=== PATIENT | male | born 1990 | race Two or more races ===

== ENCOUNTER 2017-11-22 11:51 | Emergency (ER) | payer MEDICAID ==
--- NOTE | 2017-11-22 12:21 | EDPHY ---
H & P Stated Complaint: abd pain Time Seen by Provider: 11/22/17 12:20 HPI/ROS: HPI: This is a 27-year-old male who presents with Chief Complaint: Abdominal pain Location: General abdomen Quality: Pain Duration: 1 month Signs and Symptoms: no fever, no nausea, no vomiting, no hematemesis, no blood in stool, + abdominal bloating, + diarrhea, no back pain, no urinary symptoms, no testicular/groin pain, no indigestion, no chest pain, no shortness of breath Timing: Daily Severity: Moderate Context: Patient reports that he has been having generalized abdominal pain that is nonradiating in nature and is described as constant, moderate in severity x1 month. He reports that he has been seen at [facility] emergency room for the same with negative lab work and CT scan. He had a EGD 2-3 years ago that showed gastritis. He has been supposed to be taking Prilosec but stopped as he started to feel better. He reports that he has some loose stools over the past month. Noted some blood in his stool but mostly complains of perirectal irritation and soreness. 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 He reports to me that he has been sober for 2 years. Denies any NSAID use/regular alcohol use/recent antibiotic use. Modifying Factors: None Comment: ROS: see HPI Constitutional: No fever, no chills, no weight loss Eyes: No blurred vision Respiratory: No shortness of breath, no cough Cardiovascular: No chest pain, no palpitations Gastrointestinal: No nausea, no vomiting, no diarrhea, no hematemesis, no blood in stool Genitourinary: No dysuria, no blood in urine Extremities: No myalgias, no edema Neurologic: No weakness, no numbness Skin: No rashes, no petechiae Hematologic: No bruising, no bleeding MEDICAL/SURGICAL/SOCIAL HISTORY: Medical history: Colitis, gastric ulcer, asthma Surgical history: Denies Social history: Family history noncontributory. CONSTITUTIONAL: Extremely well-appearing male, awake and alert, no obvious distress HEENT: Atraumatic and normocephalic, PERRL, EOMI. Nares patent; no rhinorrhea; no nasal mucosal edema. Tympanic membranes clear. Oropharynx clear, no exudate and moist pink mucosa. Airway patent. No lymphadenopathy. No meningismus. Cardiovascular: Normal S1/S2, regular rate, regular rhythm, without murmur rub or gallop. PULMONARY/CHEST: Symmetrical and nontender. Clear to auscultation bilaterally. Good air movement. No accessory muscle usage. ABDOMEN: Soft, nondistended, nontender, no rebound, no guarding, no peritoneal signs, no masses or organomegaly. No CVAT. RECTAL: Good sphincter tone, light brown stool in vault, no external hemorrhoids , no fissures, no palpable masses, guaiac negative; perirectal irritation with light pink bleeding noted EXTREMITIES: 2/2 pulses, strength 5/5, no deformities, no clubbing, no cyanosis or edema. NEUROLOGICAL: no focal neuro deficits. GCS 15. SKIN: Warm and dry, tattoos covering body, no erythema. no rash. Good capillary refill. Source: Patient Exam Limitations: No limitations - Personal History Current Tetanus/Diphtheria Vaccine: Unsure Current Tetanus Diphtheria and Acellular Pertussis (TDAP): Unsure - Medical/Surgical History Hx Asthma: Yes Hx Chronic Respiratory Disease: No Hx Diabetes: No Hx Cardiac Disease: No Hx Renal Disease: No Hx Cirrhosis: No Hx Alcoholism: No Hx HIV/AIDS: No Hx Splenectomy or Spleen Trauma: No Other PMH: colitis, gastric ulcer, asthma, - Social History Smoking Status: Never smoked Constitutional: Initial Vital Signs Temperature (C) 36.5 C 11/22/17 12:03 Heart Rate 95 11/22/17 12:03 Respiratory Rate 20 11/22/17 12:03 Blood Pressure 116/89 H 11/22/17 12:03 O2 Sat (%) 100 11/22/17 12:03 O2 Delivery Mode Room Air Allergies/Adverse Reactions: amoxicillin Allergy (Verified 11/22/17 12:03) Home Medications: Medication Instructions Recorded Benadryl 11/22/17 Dicyclomine [Bentyl 20 MG (*)] 20 mg PO TID PRN #15 tab 11/22/17 Hydrocortisone Acetate 25 mg NV Q6 #7 supp 11/22/17 [Hemorrhoidal Hc 25 mg supp (*)] Mylanta 11/22/17 Ondansetron Odt [Zofran Odt 4 mg 4 mg PO Q4 PRN #12 tab 11/22/17 (*)] oxyCODONE/APAP 325 [Percocet 1 - 2 tab PO Q4H PRN #10 tab 11/22/17 (*)] predniSONE 50 mg PO DAILY 7 Days tablet 11/22/17 Medical Decision Making - Diagnostics Imaging Results: Imaging Impressions Abdomen CT 11/22/17 12:32 Impression: 1. Moderate thickening of the ascending colon with surrounding inflammation with mild thickening of the remaining colon as well as mild to moderate thickening of the mid to distal ileum. Consider colitis and enteritis. Rule out Crohn's disease. 2. Thickening is also suspected of the distal esophagus and gastric wall. Consider peptic ulcer disease and esophagitis. Consider Crohn's disease as well. Findings discussed with Maggy Crook PAC at 14:05 hour, 11/22/2017. ED Course/Re-evaluation: Vital signs stable upon arrival. Given 1 L normal saline, IV Dilaudid 0.5 mg, IV promethazine 12.5 mg, IV Protonix 40 mg Rectal irritation noted with bright red blood; viscous lidocaine applied 1330: Labs reviewed, WBC 12 K. No signs of anemia/STEVEN/elevated LFTs/ electrolyte imbalance/pancreatitis. 1410: Called by radiologist Dr. Morris, who reports inflammation in the ascending colon as well as in remaining colon, thickening in the mid to distal ileum as well as in the stomach. These signs are concerning for Crohn's disease. Given 125 mg of Solu-Medrol. 1420: Reassessed patient. Sleeping soundly. Discussed CT results and plan of care. Patient asking for"pain medications" prior to leaving and advised that he will be given prescriptions. Patient is appropriate to treat outpatient. Advised GI follow-up, prednisone burst, Anusol HC suppository, Bentyl as needed , Zofran p.r.n. This patient was seen under the supervision of my secondary supervising physician. I evaluated care for this patient independently. Discussed this patient with Dr. Oswald who did not see the patient. Differential Diagnosis: Abdominal pain including but not limited to appendicitis, cholecystitis, gastritis and urinary tract infection. - Data Points Laboratory Results: Laboratory Results 11/22/17 12:35 11/22/17 12:35 11/22/17 11/22/17 12:35 12:35 WBC 12.27 10^3/uL H 10^3/uL (3.80-9.50) RBC 5.98 10^6/uL 10^6/uL (4.40-6.38) Hgb 18.8 g/dL H g/dL (13.7-17.5) Hct 53.2 % H % (40.0-51.0) MCV 89.0 fL fL (81.5-99.8) MCH 31.4 pg pg (27.9-34.1) MCHC 35.3 g/dL g/dL (32.4-36.7) RDW 13.4 % % (11.5-15.2) Plt Count 355 10^3/uL 10^3/uL (150-400) MPV 9.5 fL fL (8.7-11.7) Neut % (Auto) 67.6 % % (39.3-74.2) Lymph % (Auto) 17.4 % % (15.0-45.0) Keith % (Auto) 5.0 % % (4.5-13.0) Eos % (Auto) 9.0 % H % (0.6-7.6) Baso % (Auto) 0.5 % % (0.3-1.7) Nucleat RBC Rel Count 0.0 % % (0.0-0.2) Absolute Neuts (auto) 8.31 10^3/uL H 10^3/uL (1.70-6.50) Absolute Lymphs (auto) 2.13 10^3/uL 10^3/uL (1.00-3.00) Absolute Monos (auto) 0.61 10^3/uL 10^3/uL (0.30-0.80) Absolute Eos (auto) 1.10 10^3/uL H 10^3/uL (0.03-0.40) Absolute Basos (auto) 0.06 10^3/uL 10^3/uL (0.02-0.10) Absolute Nucleated RBC 0.00 10^3/uL 10^3/uL (0-0.01) Immature Gran % 0.5 % % (0.0-1.1) Immature Gran # 0.06 10^3/uL 10^3/uL (0.00-0.10) Sodium 144 mEq/L mEq/L (135-145) Potassium 4.1 mEq/L mEq/L (3.3-5.0) Chloride 107 mEq/L mEq/L (97-110) Carbon Dioxide 18 mEq/l L mEq/l (22-31) Anion Gap 19 mEq/L H mEq/L (8-16) BUN 7 mg/dL mg/dL (7-23) Creatinine 0.9 mg/dL mg/dL (0.7-1.3) Estimated GFR > 60 Glucose 113 mg/dL H mg/dL (70-100) Calcium 9.8 mg/dL mg/dL (8.5-10.4) Total Bilirubin 1.3 mg/dL mg/dL (0.1-1.4) Conjugated Bilirubin 0.5 mg/dL mg/dL (0.0-0.5) Unconjugated Bilirubin 0.8 mg/dL mg/dL (0.0-1.1) AST 37 IU/L IU/L (17-59) ALT 90 IU/L H IU/L (21-72) Alkaline Phosphatase 105 IU/L IU/L (38-126) Total Protein 7.8 g/dL g/dL (6.3-8.2) Albumin 4.7 g/dL g/dL (3.5-5.0) Lipase 58 IU/L IU/L (23-300) Medications Given: Discontinued Medications Hydromorphone HCl (Dilaudid) 0.5 mg IVP EDNOW ONE Stop: 11/22/17 12:33 Last Admin: 11/22/17 12:49 Dose: 0.5 mg Sodium Chloride (Ns) 1,000 mls @ 0 mls/hr IV EDNOW ONE; Wide Open PRN Reason: Protocol Stop: 11/22/17 12:33 Last Admin: 11/22/17 12:44 Dose: 1,000 mls Lidocaine (Uroject Lidocaine 2% Jelly) 20 ml UR EDNOW ONE Stop: 11/22/17 12:33 Last Admin: 11/22/17 12:49 Dose: 20 ml Pantoprazole Sodium (Protonix) 40 mg IVP ONCE ONE Stop: 11/22/17 12:33 Last Admin: 11/22/17 12:49 Dose: 40 mg Promethazine HCl (Phenergan) 12.5 mg IVP EDNOW ONE Stop: 11/22/17 12:33 Last Admin: 11/22/17 12:44 Dose: 12.5 mg Departure - Departure Disposition: Home, Routine, Self-Care Clinical Impression: Perirectal skin irritation, Inflammatory bowel disease Gastritis Qualifiers: Gastritis type: unspecified gastritis Chronicity: chronic Gastritis bleeding: without bleeding Qualified Code(s): K29.50 - Unspecified chronic gastritis without bleeding Condition: Good Instructions: Irritable Bowel Syndrome (ED), Gastritis (ED), Diet for Stomach Ulcers and Gastritis (ED) Additional Instructions: Consume a minimum of 8-10 glasses of water or electrolyte fluid replacement drinks that include Gatorade, Powerade, Pedialyte. Eat a bland diet for the next 48 hours and then slowly advance as tolerated. Take Zofran 1 tab every 4 hours as needed for nausea, vomiting. Take Prednisone 50 mg daily times x 7 days. Start taking [id number] Prilosec daily at night. Follow-up with Gastroenterology, Dr. St in next 7-10 days. Follow-Up: Please follow-up as noted above. Follow up sooner if your condition worsens or if you develop any new problems Call as soon as possible for an appointment. Be clear when you call for an appointment that this is an Emergency Department follow-up. Contact the Emergency Department if you are having trouble arranging follow up care. Our referrals are not based on your insurance network. When time allows, contact your insurance carrier to verify the referral physician is in your plan. If not, get a referral for an in-network manager. Please ask us if you have any questions. Referrals: Bob St MD [Medical Doctor] - As per Instructions Prescriptions: Dicyclomine [Bentyl 20 MG (*)] 20 mg PO TID PRN #15 tab PRN Reason: Gi Distress Hydrocortisone Acetate [Hemorrhoidal Hc 25 mg supp (*)] 25 mg NV Q6 #7 supp Ondansetron Odt [Zofran Odt 4 mg (*)] 4 mg PO Q4 PRN #12 tab PRN Reason: Nausea/Vomiting, Use 1st oxyCODONE/APAP 5/325 [Percocet 5/325 (*)] 1 - 2 tab PO Q4H PRN #10 tab PRN Reason: Pain, Severe predniSONE 50 mg PO DAILY 7 Days tablet
[2017-11-22] MEDS ORDERED: LIDOCAINE 2% JELLY 20 ML (UROJECT) UR ONE (12:32)
[2017-11-22] MEDS ORDERED: PANTOPRAZOLE SODIUM 40 MG VIAL IVP ONE (12:32)
[2017-11-22] MEDS ORDERED: HYDROmorphONE/DILAUDID 2 MG/ML INJ IVP ONE (12:32)
[2017-11-22] MEDS ORDERED: PROMETHAZINE HCL 25 MG/ML INJ IVP ONE (12:32)
[2017-11-22] MEDS ORDERED: NS 1,000 ML IV ONE (12:32)
[2017-11-22] MEDS ORDERED: HYDROmorphONE/DILAUDID 1 MG/ML INJ ONE (12:41)
[2017-11-22 12:47] LABS: PLATELET COUNT 355 10^3/uL (150-400)
[2017-11-22] MEDS ORDERED: IOPAMIDOL (ISOVUE-300) 100 ML BTL ONE (13:25)
[2017-11-22] MEDS ORDERED: methylPREDNISolone SOD SUCC 125 MG/2 ML VIAL IVP ONE (14:08)
[2017-11-22 14:42] VITALS: BP 115/76
== END 2017-11-22 14:44 | disposition home or self-care (01) ==
DX: K29.50 Unspecified chronic gastritis without bleeding (principal); K63.9 Disease of intestine, unspecified; K62.89 Other specified diseases of anus and rectum; J45.909 Unspecified asthma, uncomplicated; E86.9 Volume depletion, unspecified
CPT/HCPCS: 96374; J1170; J2550; J2930; Q9967

== ENCOUNTER 2017-12-14 16:02 | Emergency (ER) | payer MEDICAID ==
[2017-12-14] MEDS ORDERED: LIDOCAINE 4%/MENTHOL 1% PATCH TD ONE (16:43)
[2017-12-14] MEDS ORDERED: IBUPROFEN 600 MG TAB PO ONE (16:43)
[2017-12-14] MEDS ORDERED: DIAZEPAM 5 MG TAB ONE (16:43)
[2017-12-14] MEDS ORDERED: traMADol 50 MG TAB ONE (16:43)
[2017-12-14] MEDS ORDERED: ACETAMINOPHEN 500 MG TAB ONE (16:43)
--- NOTE | 2017-12-14 22:22 | EDPHY ---
H & P Time Seen by Provider: 12/14/17 16:12 HPI/ROS: Nedra Gramajo : 88 12/14/17 Chief complaint: This patient complains of back pain in the midback. HPI: This patient was driven in by his girlfriend with history of onset left back pain yesterday when he bent over to tie his shoe. He reports that it was gripping severe and dropped into his knees. He has had back spasms since that time with pain that worsens with movement. He currently reports that 01/11 and reports associated muscle spasms. He has not taken any medications prior to arrival. ROS: Constitutional: No fevers or other complaints. Pulmonary: No dyspnea. No coughing Cardiovascular: No lightheadedness. No chest pain. GI: No nausea vomiting. No abdominal pain. Neuro: No focal numbness tingling weakness. No bowel or bladder incontinence. Musculoskeletal: No recent trauma. Past medical history: Otherwise healthy. Social history: Patient uses edible marijuana. He denies any smoking rare drinking. No other drug use. Specifically, no IV drug use Physical exam: Physical Exam Vital signs are normal. General: No acute distress HEENT: Atraumatic. Eyes: Pupils equal and react to light. Extraocular motions are intact. Lungs: No respiratory distress. Lungs are clear to auscultation bilaterally. Cardiac: Brisk capillary refill is intact throughout. Pulses are 2+ and symmetric in the affected extremity. Back: Patient has left thoracic paraspinous muscular tenderness and spasm around the region of T8-T10. Skin: No rash or pallor. Neuro: Alert and oriented x3 with no sensorimotor deficits. He maintains normal light touch sensory exam bilaterally and 2+ symmetric patellar DTRs bilaterally, 5/5 strength in great toe dorsiflexion, plantar flexion of bilateral upper extremities. Initial diagnosis: Thoracic back strain, doubt discogenic disease, doubt bony abnormality, doubt epidural abscess or other ED course: Ibuprofen, Tylenol p. O., tramadol p. O., Valium p.o., lidocaine patch With partial relief Discussion: Patient with findings of thoracic back strain and spasm without red flag findings that would indicate radiculopathy, concerns for epidural abscess or other complicating factors. Plan: Discharge home on ibuprofen, Tylenol, lidocaine patches, methocarbamol and tramadol if needed with follow up with primary care physician. Smoking Status: Never smoked Allergies/Adverse Reactions: amoxicillin Allergy (Verified 11/22/17 12:03) Home Medications: Medication Instructions Recorded Benadryl 11/22/17 Dicyclomine [Bentyl 20 MG (*)] 20 mg PO TID PRN #15 tab 11/22/17 Hydrocortisone Acetate 25 mg NE Q6 #7 supp 11/22/17 [Hemorrhoidal Hc 25 mg supp (*)] Mylanta 11/22/17 Ondansetron Odt [Zofran Odt 4 mg 4 mg PO Q4 PRN #12 tab 11/22/17 (*)] oxyCODONE/APAP 5/325 [Percocet 1 - 2 tab PO Q4H PRN #10 tab 11/22/17 5/325 (*)] predniSONE 50 mg PO DAILY 7 Days tablet 11/22/17 MDM/Departure - Depart Disposition: Home, Routine, Self-Care Clinical Impression: Acute thoracic back pain Qualifiers: Back pain laterality: left Qualified Code(s): M54.6 - Pain in thoracic spine Condition: Good Instructions: Acute Low Back Pain (ED) Additional Instructions: Diagnosis: Thoracic back strain Plan: Ibuprofen, Tylenol, Robaxin, lidocaine patches and tramadol as needed for pain control. No driving, alcohol work on tramadol Follow up primary care physician Limit activity until symptoms improve. Return for any significant worsening despite treatment plan. Referrals: NONE *PRIMARY CARE P,. [Primary Care Provider] - As per Instructions
== END 2017-12-14 17:10 | disposition home or self-care (01) ==
LOC: CED 16:06
DX: M54.6 Pain in thoracic spine (principal)

== ENCOUNTER 2018-01-29 17:15 | Emergency (ER) | payer MEDICAID ==
[2018-01-29 17:24] VITALS: BP 133/85
[2018-01-29] MEDS ORDERED: IBUPROFEN 600 MG TAB PO ONE (17:37)
--- NOTE | 2018-01-29 17:53 | EDPHY ---
H & P Time Seen by Provider: 01/29/18 17:19 HPI/ROS: CHIEF COMPLAINT: Right foot pain HISTORY OF PRESENT ILLNESS: Patient states he was home around 11 o'clock this morning and was working on a vacuum book cleaner when the motor head start coordinator fell off and landed on his right foot. It injured his 1st 2nd and 3rd toes. He put ice on it. He has been icing and elevating it throughout the day. He comes in for evaluation. Patient denies numbness, tingling, other injury. No discoloration noted. REVIEW OF SYSTEMS: Negative except per HPI. General Appearance: Alert, no distress. Eyes: Pupils equal and round no icterus Respiratory: No respiratory distress Neurological: Awake, alert, no focal deficits. Skin: Warm and dry, no rashes. Musculoskeletal: Neck is supple nontender. Extremities are symmetrical, full range of motion, tenderness to palpation to the forefoot on the right-hand side around toes 1 and 2 and 3. Some swelling. Distal sensation circulation and movement intact. Psychiatric: Patient is oriented X 3, there is no agitation. Medical/surgical history: Noncontributory Smoking Status: Never smoked Constitutional: Initial Vital Signs Temperature (C) 36.9 C 01/29/18 17:19 Heart Rate 83 01/29/18 17:19 Respiratory Rate 16 01/29/18 17:19 Blood Pressure 133/85 H 01/29/18 17:19 O2 Sat (%) 95 01/29/18 17:19 O2 Delivery Mode Room Air Allergies/Adverse Reactions: amoxicillin Allergy (Verified 01/29/18 17:23) Medical Decision Making - Diagnostics Imaging Results: Imaging Impressions Foot X-Ray 01/29/18 17:28 Impression: Negative. No acute fracture. Imaging: I viewed and interpreted images myself Differential Diagnosis: Patient presents after minor trauma to right foot, dropped a vacuum book cleaner motor on his foot at home. No evidence of fracture, dislocation, open wound or compartment syndrome. Discussed RICE care and given Matthew wrap and postop shoe. Signs and symptoms of compartment syndrome and other complications discussed. Stable for discharge. - Data Points Medications Given: Discontinued Medications Ibuprofen (Motrin) 600 mg PO EDNOW ONE Stop: 01/29/18 17:38 Last Admin: 01/29/18 17:41 Dose: 600 mg Departure - Departure Disposition: Home, Routine, Self-Care Clinical Impression: Foot contusion Qualifiers: Encounter type: initial encounter Laterality: right Qualified Code(s): S90.31XA - Contusion of right foot, initial encounter Condition: Good Instructions: Foot Contusion (ED) Additional Instructions: Rest, ice, compression and elevation for your injury. Use the Matthew wrap and postop shoe when up and ambulating. Ibuprofen and/or Tylenol for pain as needed. Return for any concerns of numbness, discoloration or other issues. Referrals: NONE *PRIMARY CARE P,. [Primary Care Provider] - As per Instructions
== END 2018-01-29 18:01 | disposition home or self-care (01) ==
LOC: CED 17:15
DX: S90.31XA Contusion of right foot, initial encounter (principal); W20.8XXA Other cause of strike by thrown, projected or falling object, initial encounter; Y92.009 Unspecified place in unspecified non-institutional (private) residence as the place of occurrence of the external cause
CPT/HCPCS: 73630-PO; L4386

== ENCOUNTER 2018-02-20 | Emergency (ER) | payer MEDICAID | END 2018-02-20 11:31 | disposition home or self-care (01) ==

== ENCOUNTER 2018-08-31 18:00 | Emergency (ER) | payer MEDICAID ==
--- NOTE | 2018-08-31 18:41 | EDPHY ---
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 Worse with taking a deep breath. He became slightly anxious secondary to that and felt like his heart might be irregular. No nausea or vomiting. No diaphoresis. No lightheadedness or dizziness. Patient has no history of hypertension, high cholesterol, or smoking. No known family history of early coronary artery disease (sees he reports his father quite young and he did not know does not know his history.) Patient does have a history of cocaine use a year and half ago but adamantly denies any recently. He does smoke marijuana daily. No history of PEs or DVTs. No recent fevers or chills, cough, upper respiratory infections, shortness breath, vomiting, diarrhea, urinary complaints, headache, or lightheadedness. REVIEW OF SYSTEMS: A comprehensive 10 system review of systems was reviewed and is otherwise negative aside from elements mentioned in the history of present illness and medical decision making. PAST MEDICAL HISTORY: Peptic ulcer disease, Clostridium difficile, asthma. SOCIAL HISTORY: Daily marijuana use. Nonsmoker. VITAL SIGNS: see nurse's notes. GENERAL: Well-developed, well-nourished, reports his discomfort has improved since arrival here. Rates his discomfort as 2/10 discomfort. HEENT: Atraumatic. Eyes: No injection or icterus. Oropharynx: No erythema , no injection, no swelling. Neck: No JVD, no bruits, supple with no adenopathy. CHEST: Mild tenderness over left upper chest. No crepitus. LUNGS: Clear to auscultation bilaterally, no wheezes, rhonchi or rales. CARDIAC: Regular rate and rhythm, no murmurs, no rubs, no gallops. ABDOMEN: Soft, nontender, nondistended, bowel sounds normal. BACK: No CVA tenderness. EXTREMITIES: No trauma. No clubbing, cyanosis or edema. Range of motion is normal throughout. NEURO: Alert and oriented , grossly nonfocal. SKIN: No diaphoresis, warm and dry, no rash. - Personal History Current Tetanus Diphtheria and Acellular Pertussis (TDAP): Unsure - Medical/Surgical History Hx Asthma: Yes Hx Chronic Respiratory Disease: No Hx Diabetes: No Hx Cardiac Disease: No Hx Renal Disease: No Hx Cirrhosis: No Hx Alcoholism: No Hx HIV/AIDS: No Hx Splenectomy or Spleen Trauma: No Other PMH: colitis, gastric ulcer, asthma, UTI's, marijuana user daily. - Social History Smoking Status: Never smoked Constitutional: Initial Vital Signs Temperature (C) 37.0 C 08/31/18 18:07 Heart Rate 88 08/31/18 18:07 Respiratory Rate 16 08/31/18 18:07 Blood Pressure 113/78 08/31/18 18:07 O2 Sat (%) 95 08/31/18 18:07 O2 Delivery Mode Room Air Allergies/Adverse Reactions: amoxicillin Allergy (Verified 08/31/18 18:06) Unknown Home Medications: Medication Instructions Recorded NK [No Known Home Meds] 08/31/18 Medical Decision Making - Diagnostics EKG Interpretation: 12-LEAD EKG: Please see the full report in [facility]. My interpretation: Sinus rhythm, no ischemic changes. Imaging Results: Impression: Normal chest x-ray. Dictated By: Paul Morris MD Imaging: I viewed and interpreted images myself ED Course/Re-evaluation: 27-year-old male with no cardiac risk factors that I can identify presenting with onset of left upper chest discomfort described as a tightness. Symptoms are mostly resolved on arrival to the emergency department. EKG demonstrates no acute ischemic changes. Bedside troponin is -0.00. Patient is perc score is negative and a D-dimer was not ordered. Chest x-ray is normal with no pneumothorax or pneumonia. Laboratory evaluation is negative. Patient's heart score 0. The patient does report a remote history of ulcer disease. He has not taken PPIs recently. He reports he has not had chest discomfort from gastric cause previously. Patient was treated with a GI cocktail and was also given Toradol for the pain. We discussed and I offered to the patient further observation in the emergency department to include a 4 hr troponin. He declined. I believe this is a reasonable plan of action. Patient understands that a cardiac cause cannot be fully excluded but he will follow up with his primary care physician. He is approved feeling much improved at the time of discharge. Differential Diagnosis: After history and physical examination, the differential for chest pain was considered, including but not limited to, myocardial ischemia, acute coronary syndrome, pulmonary embolus, chest wall pain, pleural inflammation, gastrointestinal causes, and pulmonary infectious causes. - Data Points Medications Given: Discontinued Medications Al Hydroxide/Mg Hydroxide (Maalox Susp) 30 ml PO ONCE ONE Stop: 08/31/18 20:03 Last Admin: 08/31/18 20:20 Dose: 30 ml Hyoscyamine Sulfate (Levsin, Hyomax-Sl) 0.25 mg PO ONCE ONE Stop: 08/31/18 20:03 Last Admin: 08/31/18 20:20 Dose: 0.25 mg Ketorolac Tromethamine (Toradol) 30 mg IVP EDNOW ONE Stop: 08/31/18 20:04 Last Admin: 08/31/18 20:19 Dose: 30 mg Lidocaine (Lidocaine 2% Viscous) 15 ml PO ONCE ONE Stop: 08/31/18 20:03 Last Admin: 08/31/18 20:20 Dose: 15 ml Point of Care Test Results: CBC CBC Collection Date 08/31/18 CBC Collection Time 18:58 WBC 10.05 RBC 5.36 HGB 16.3 HCT 48.4 PLT 287 Neut # 4.45 Neut 44.3 LYMPH # 3.70 LYMPH 36.8 MCV 90.3 Chemistry 08/31/18 08/31/18 19:06 19:05 POC Sodium 146 mEq/L H mEq/L (135-145) POC Potassium 3.7 mEq/L mEq/L (3.3-5.0) POC Chloride 106.0 mEq/L mEq/L (97-110) POC Total CO2 25 mEq/L mEq/L (22-31) POC BUN 9 mg/dL mg/dL (7-23) POC Creatinine 0.8 mg/dL mg/dL (0.7-1.3) POC Glucose 105 mg/dL H mg/dL (70-100) POC Calcium 9.5 mg/dL mg/dL (8.5-10.4) POC Troponin I 0.00 ng/mL ng/mL (0.00-0.08) Departure - Departure Disposition: Home, Routine, Self-Care Clinical Impression: Chest wall pain Chest pain Qualifiers: Chest pain type: other chest pain Qualified Code(s): R07.89 - Other chest pain ; R07.8 - Other chest pain Condition: Good Instructions: Chest Pain (ED) Additional Instructions: No clear cause of your chest discomfort has been identified. Our evaluation for cardiac causes has been reassuring. However, we cannot completely exclude cardiac cause of your chest discomfort. Please follow up with your primary care physician if you continued to experience chest discomfort. You may take Tylenol or ibuprofen as needed for any residual chest discomfort. I also would recommend that you begin taking omeprazole, which is available over -the-counter, for treatment of any reflux, gastritis, or esophagitis. Referrals: KENTRELL PRATT [Other] - As per Instructions (Please follow up with [facility] within the next week if you continued to have chest discomfort.)
[2018-08-31] MEDS ORDERED: MAG HYDROX/AL HYDROX/SIMETH 30 ML UDCUP PO ONE (20:02)
[2018-08-31] MEDS ORDERED: HYOSCYAMINE SULFATE 0.125 MG TAB PO ONE (20:02)
[2018-08-31] MEDS ORDERED: LIDOCAINE 2% VISCOUS 15 ML UDCUP PO ONE (20:02)
[2018-08-31] MEDS ORDERED: KETOROLAC 30 MG/1 ML SDV IVP ONE (20:03)
[2018-08-31 20:37] VITALS: BP 115/74
--- NOTE | 2018-09-01 21:45 | CPEKG ---
Test Reason : OPEN Blood Pressure : / mmHG Vent. Rate : 088 BPM Atrial Rate : 089 BPM P-R Int : 148 ms QRS Dur : 087 ms QT Int : 350 ms P-R-T Axes : 055 035 023 degrees QTc Int : [address] elev, probable normal early repol pattern Confirmed by Marcy Easley ([id number]) on 09/01/2018 9:45:23 PM Referred By: Marcy Easley Confirmed By:Marcy Easley
== END 2018-08-31 20:40 | disposition home or self-care (01) ==
LOC: CED 18:00
DX: R07.89 Other chest pain (principal); Z87.11 Personal history of peptic ulcer disease
CPT/HCPCS: 71045-PO; 80048-ER; 84484-ER; 96374-ER; 99284-ER; J1885

== ENCOUNTER 2018-10-09 09:37 | Emergency (ER) | payer MEDICAID ==
[2018-10-09] MEDS ORDERED: KETAMINE 200 MG/20 ML VIAL IVP ONE (10:05)
[2018-10-09] MEDS ORDERED: NS 1,000 ML IV ONE (10:08)
--- NOTE | 2018-10-09 10:28 | EDPHY ---
H & P Stated Complaint: 2wks ago dr. nix for Coloitis- wk before that @ [facility]- had CT then Time Seen by Provider: 10/09/18 09:41 HPI/ROS: CHIEF COMPLAINT: Abdominal pain, nausea, vomiting, diarrhea HISTORY OF PRESENT ILLNESS: 28-year-old male with a history of chronic abdominal discomfort associated with nausea, vomiting, and diarrhea, who reports that he has been diagnosed with Clostridium difficile in the past, presents with symptoms of nausea, vomiting, lower abdominal crampy discomfort and diarrhea. Patient states that 3 weeks ago he had similar symptoms and was seen at the [facility] Emergency Department. Reports he had a high white count, a CT scan which showed colitis, and was discharged to take it unknown antibiotic daily for about 10 days. He finished the antibiotics but at the end of his antibiotic course he reports that he was feeling poorly again. He went to see his primary care physician and was given a prescription for Vicodin. Patient presents today reporting that over the last 3 days he has had an increase in his nausea, vomiting multiple times, using Maalox, Mylanta, Pepto- Bismol to control his symptoms, has been having diarrhea and crampy lower abdominal pain. Last colonoscopy per the patient was in April. Patient denies any fevers or chills. No chest pain or shortness of breath, lightheadedness or dizziness. No urinary complaints. REVIEW OF SYSTEMS: A comprehensive 10 system review of systems was reviewed and is otherwise negative aside from elements mentioned in the history of present illness and medical decision making. PAST MEDICAL HISTORY: Clostridium difficile, chronic abdominal pain SOCIAL HISTORY: No tobacco use, uses marijuana to control his nausea. VITAL SIGNS Reviewed by me. Normal blood pressure and heart rate. GENERAL: Well-developed, well-nourished, resting comfortably in no respiratory distress. HEENT: Atraumatic. Eyes: No icterus, no injection. Mouth: moist mucous membranes. No erythema or lesions. Neck: supple with no adenopathy. LUNGS: Clear to auscultation bilaterally, no wheezes, rhonchi or rales. CARDIAC: Regular rate and rhythm, no rubs, murmurs or gallops. ABDOMEN: Soft, tenderness in the left lower quadrant. No guarding or rebound. Nondistended. BACK: No CVA tenderness. EXTREMITIES: No trauma. No edema. Range of motion is normal throughout. NEURO: Alert and oriented, grossly nonfocal. SKIN: Warm and dry, no rash. PSYCHIATRIC: Normal mentation, no agitation. - Personal History Current Tetanus Diphtheria and Acellular Pertussis (TDAP): No - Medical/Surgical History Hx Asthma: Yes Hx Chronic Respiratory Disease: No Hx Diabetes: No Hx Cardiac Disease: No Hx Renal Disease: No Hx Cirrhosis: No Hx Alcoholism: No Hx HIV/AIDS: No Hx Splenectomy or Spleen Trauma: No Other PMH: colitis, gastric ulcer, asthma, UTI's, marijuana user daily. - Social History Smoking Status: Never smoked Constitutional: Initial Vital Signs Temperature (C) 36.6 C 10/09/18 09:46 Heart Rate 90 10/09/18 09:46 Respiratory Rate 18 10/09/18 09:46 Blood Pressure 142/94 H 10/09/18 09:46 O2 Sat (%) 97 10/09/18 09:46 O2 Delivery Mode Room Air Allergies/Adverse Reactions: ketamine Allergy (Verified 10/09/18 11:09) amoxicillin Adverse Reaction (Intermediate, Verified 10/09/18 11:10) Unknown Home Medications: Medication Instructions Recorded Dicyclomine [Bentyl 20 MG (*)] 20 mg PO TID PRN #20 tab 10/09/18 Hydrocodone/APAP 5/325 [[place] 1 tab PO Q6H PRN #10 tab 10/09/18 5/325 (RX)] Ondansetron Odt [Zofran Odt 4 mg 4 mg PO Q6 PRN #8 tab 10/09/18 (RX)] predniSONE 40 mg PO DAILY 7 Days tab 10/09/18 Medical Decision Making - Diagnostics Imaging Results: Imaging Impressions Abdomen CT 10/09/18 11:06 Impression: 1. Multisegmental GI inflammatory changes, as above-detailed, involving portions of the distal thoracic esophagus, stomach, duodenum, mid to distal ileum, and transverse colon in this patient with suspected inflammatory bowel disease (UC versus Crohn) with a small amount of free interloop fluid adjacent to loops of ileum. There is no pneumatosis, mechanical obstruction, or free air. GI consultation and histopathology confirmation is recommended. 2. Mild hepatomegaly with diffuse steatosis. 3. Urinary bladder wall thickening, which may be due to incomplete distention, although a concurrent cystitis cannot be excluded. Correlation with urinalysis is suggested. Findings were discussed with Marcy Easley MD at 12:24, on 10/09/2018. Imaging: Discussed imaging studies w/ on call Radiologist ED Course/Re-evaluation: IV placed in the patient received a L normal saline. Ketamine IV was ordered. Patient has significant dystonic reaction to this which was treated with Benadryl. Records from [facility] were obtained. Patient was evaluated there on September 21 [place] [address], and a CT scan demonstrating active colitis in the ascending and transverse colon. Plan at discharge was discussed with Gastroenterology. Patient was placed on levofloxacin as well as Flagyl. He was discharged to follow up with GI of the [facility] [place]. Patient tells me that he contacted GI of the [facility] [place] and was asked to follow up with a production support developer[place] [address], normal electrolytes, negative urinalysis. CT scan abdomen pelvis was ordered. Findings consistent with an inflammatory bowel disease. Patient has inflammation along the esophagus, gastric wall, duodenum, ileum, and the transverse colon is slightly inflamed. Patient does not have significant signs of colitis with the exception of wall thickening of the transverse colon. No diverticulitis. Patient received Solu-Medrol 125 mg IV. Patient's course discussed with Dr. Isaacs. Patient will follow up with Gastroenterology of the [facility] [place]. I held a long discussion with the patient regarding his diagnosis of inflammatory bowel disease, the need for him to establish care either through the [facility] or [facility] system, and the need for close follow-up with Gastroenterology of the [facility] [place]. He was discharged with a prescription for prednisone, Bentyl, Zofran, and a short course of narcotics to use if needed. Differential Diagnosis: After obtaining the patient's history and performing an examination, differential diagnosis considered included but was not limited to diverticulitis , colitis, Clostridium difficile, gastritis, urinary tract infection, appendicitis, chronic abdominal pain. - Data Points Laboratory Results: 10/09/18 10/09/18 10:24 10:10 POC Sodium 143 mEq/L mEq/L (135-145) POC Potassium 4.2 mEq/L mEq/L (3.3-5.0) POC Chloride 107.0 mEq/L mEq/L (97-110) POC Total CO2 26 mEq/L mEq/L (22-31) POC BUN 9 mg/dL mg/dL (7-23) POC Creatinine 1.0 mg/dL mg/dL (0.7-1.3) POC Glucose 102 mg/dL H mg/dL (70-100) POC Calcium 9.4 mg/dL mg/dL (8.5-10.4) POC Total Bilirubin 1.2 mg/dL mg/dL (0.1-1.4) POC AST 32 IU/L IU/L (17-59) POC ALT 37 IU/L IU/L (21-72) POC Alk Phosphatase 84 IU/L IU/L (38-126) C-Reactive Protein < 5.0 mg/L mg/L (<10.0) POC Total Protein 7.5 g/dL g/dL (6.3-8.2) POC Albumin 4.2 g/dL g/dL (3.5-5.0) Medications Given: Discontinued Medications Diphenhydramine HCl (Benadryl Injection) 25 mg IVP EDNOW ONE Stop: 10/09/18 10:52 Last Admin: 10/09/18 10:57 Dose: 25 mg Sodium Chloride (Ns) 1,000 mls @ 0 mls/hr IV ONCE ONE; Wide Open PRN Reason: Protocol Stop: 10/09/18 10:09 Last Admin: 10/09/18 10:49 Dose: 1,000 mls Ketamine HCl (Ketamine) 30 mg IVP EDNOW ONE Stop: 10/09/18 10:06 Last Admin: 10/09/18 10:46 Dose: 3 mg Methylprednisolone Sodium Succinate (Solu-Medrol) 125 mg IVP EDNOW ONE Stop: 10/09/18 12:29 Last Admin: 10/09/18 12:46 Dose: 125 mg Point of Care Test Results: CBC CBC Collection Date 10/09/18 CBC Collection Time 10:15 WBC 10.27 RBC 5.94 HGB 18.3 HCT 53.4 PLT 317 Neut # 5.77 Neut 56.2 LYMPH # 2.56 LYMPH 24.9 MCV 90.1 Chemistry 10/09/18 10:24 POC Sodium 143 mEq/L mEq/L (135-145) POC Potassium 4.2 mEq/L mEq/L (3.3-5.0) POC Chloride 107.0 mEq/L mEq/L (97-110) POC Total CO2 26 mEq/L mEq/L (22-31) POC BUN 9 mg/dL mg/dL (7-23) POC Creatinine 1.0 mg/dL mg/dL (0.7-1.3) POC Glucose 102 mg/dL H mg/dL (70-100) POC Calcium 9.4 mg/dL mg/dL (8.5-10.4) POC Total Bilirubin 1.2 mg/dL mg/dL (0.1-1.4) POC AST 32 IU/L IU/L (17-59) POC ALT 37 IU/L IU/L (21-72) POC Alk Phosphatase 84 IU/L IU/L (38-126) POC Total Protein 7.5 g/dL g/dL (6.3-8.2) POC Albumin 4.2 g/dL g/dL (3.5-5.0) Urine Dip Collection Date 10/09/18 Collection Time 12:39 Specific [place] (1.002-1.030) 1.010 PH (5.0-7.5) 7.0 Leukocytes (Negative) Negative Nitrites (Negative) Negative Protein (Negative) Negative Glucose (Negative) Negative Ketones (Negative) Negative Urobilnogen (0.2-1.0 EU) 0.2 Bilirubin (Negative) Negative Blood (Negative) Negative Departure - Departure Disposition: Home, Routine, Self-Care Clinical Impression: Inflammatory bowel diseases (IBD), Esophagitis Abdominal pain Qualifiers: Abdominal location: lower abdomen, unspecified Qualified Code(s): R10.30 - Lower abdominal pain, unspecified Diarrhea Qualifiers: Diarrhea type: unspecified type Qualified Code(s): R19.7 - Diarrhea, unspecified Condition: Good Instructions: Irritable Bowel Syndrome (ED), Diet for Stomach Ulcers and Gastritis (ED) Additional Instructions: It is very important that you establish care with a manager highway. Your CT scan today again demonstrates signs of a chronic condition called inflammatory bowel disease. This may be an ulcerative colitis or it may be Crohn's disease. Gastroenterology will be helpful in preventing ongoing pain. You been given a prescription for Zofran. You may use this as needed for recurrent nausea and vomiting. Please take nexium which is available [id number] each morning 30 min before eating for the next 2 weeks. Please use Bentyl as needed for crampy abdominal discomfort. Please take the prednisone as directed to help with the inflammation of your bowels. Dose is prednisone 40 mg daily for the next 7 days. Referrals: Sharif Henriquez MD [Primary Care Provider] - As per Instructions Subhash Isaacs MD [Medical Doctor] - As per Instructions (Please contact Gastroenterology of [facility] and follow up as soon as possible. Be sure they know this is an emergency department follow-up visit and that I discussed your case with the on-call physician, Dr. Isaacs.) Prescriptions: Dicyclomine [Bentyl 20 MG (*)] 20 mg PO TID PRN #20 tab PRN Reason: abd pain Hydrocodone/APAP 5/325 [[place] 5/325 (RX)] 1 tab PO Q6H PRN #10 tab PRN Reason: Pain Ondansetron Odt [Zofran Odt 4 mg (RX)] 4 mg PO Q6 PRN #8 tab PRN Reason: Nausea predniSONE 40 mg PO DAILY 7 Days tab
[2018-10-09] MEDS ORDERED: HYOSCYAMINE SULFATE 0.125 MG TAB ONE (10:38)
[2018-10-09] MEDS ORDERED: IOPAMIDOL (ISOVUE-300) 100 ML BTL ONE (11:12)
[2018-10-09] MEDS ORDERED: methylPREDNISolone SOD SUCC 125 MG/2 ML VIAL IVP ONE (12:28)
[2018-10-09 13:06] VITALS: BP 123/62
== END 2018-10-09 13:05 | disposition home or self-care (01) ==
LOC: CED 09:37
DX: K52.3 Indeterminate colitis (principal); K20.9 Esophagitis, unspecified; R10.30 Lower abdominal pain, unspecified; R19.7 Diarrhea, unspecified; E86.9 Volume depletion, unspecified
CPT/HCPCS: 74177-PO; 80053-ER; 85025-QW-ER; 96361-ER; 96374-ER; 96375-ER; 99285-ER; J1200; J2930; Q9967